=== PATIENT | male | born 1975 | race Caucasian/White ===

== ENCOUNTER 2019-10-12 06:25 | Day surgery (SDC) | payer BC, SELFPAY ==
[2019-10-12 06:50] VITALS: PULSE 67; RESP 17; TEMP 36.4; O2SAT 97; BMI 34.5
[2019-10-12] MEDS: Lactated Ringers 1,000 ML 100 ML IV (07:04)
[2019-10-12] MEDS: Bupiv/Epi 0.5% Mpf 30 ML Vial (08:02)
[2019-10-12 08:44] VITALS: BP 118/62; BP 93/65; PULSE 75; RESP 16; TEMP 36.5; O2SAT 94
[2019-10-12 08:50] VITALS: BP 109/82; BP 118/62; PULSE 71; RESP 16; O2SAT 97
[2019-10-12 09:00] VITALS: BP 112/84; BP 118/62; PULSE 73; RESP 16; O2SAT 100
[2019-10-12 09:20] VITALS: BP 117/73; BP 118/62; PULSE 70; RESP 16; TEMP 36.5; O2SAT 95
--- NOTE | 2019-10-12 09:29 | PCM.OPRPT ---
Report of Operation Date of Procedure: 10/12/19 Pre-Operative Diagnosis: Internal derangement left knee Post-Operative Diagnosis: MMT, OA Surgery/Procedure Performed:: D & O arthroscopy Type of Anesthesia:: General Anesthesiologist: Vimal Gomes - Admit VTE Documentation VTE Present on Admission: No VTE Mechan Device Prophylaxis: SCD's, Thigh High SJ Hose VTE Pharm Prophylaxis ordered?: No Reason prophylaxis not ordered:: Treatment Not Indicated
[2019-10-12 09:54] VITALS: BP 117/88; BP 118/62; PULSE 65; RESP 16; TEMP 36.1; O2SAT 97
== END 2019-10-12 10:12 | disposition home or self-care (01) ==
LOC: SDC 08:26 → AC 08:27
PROVIDERS: Anesthesiology; Referring Provider Orthopaedic Surgery; Visit Provider Orthopaedic Surgery
PROC: (CPT 29870; principal; 2019-10-12 07:45)
DX: S83.242A Other tear of medial meniscus, current injury, left knee, initial encounter (principal); S83.282A Other tear of lateral meniscus, current injury, left knee, initial encounter; M17.12 Unilateral primary osteoarthritis, left knee; M94.262 Chondromalacia, left knee; V00.131A Fall from skateboard, initial encounter; X50.1XXA Overexertion from prolonged static or awkward postures, initial encounter; Y93.51 Activity, roller skating (inline) and skateboarding; Y92.9 Unspecified place or not applicable; Y99.8 Other external cause status; F17.200 Nicotine dependence, unspecified, uncomplicated; Z11.59 Encounter for screening for other viral diseases
CPT/HCPCS: 01400; 29881; 87635; G2023; J7120; U0003

== ENCOUNTER → 2022-03-25 | Outpatient (CLI) | payer BC, SELFPAY ==
--- NOTE | 2022-03-26 10:53 | PFT_ITS ---
INTRODUCTION: The patient is a 47-year-old male that presents for pulmonary function studies secondary to a diagnosis of cough. Respiratory therapy reported good patient effort. Bronchodilators were used during testing. INTERPRETATION: Forced expiration spirometry demonstrates the presence of the presence of a mild large airways obstructive ventilatory defect. There was a significant response to aerosolized bronchodilators. Spirograms are of good quality and plateau gradually indicating slow emptying of the lungs. Body plethysmography was performed and revealed lung volumes to be within normal limits. Diffusing capacity by single breath CO was also within normal limits. IMPRESSION: Partially reversible mild large airways obstructive ventilatory defect with p reserved lung volumes and diffusing capacity.
== END | disposition home or self-care (01) ==
LOC: PSN 06:50
PROVIDERS: PCP Family Medicine; Visit Provider Internal Medicine Critical Care Medicine
DX: R05.9 Cough, unspecified (principal)
CPT/HCPCS: 94060; 94726; 94729

== ENCOUNTER 2022-04-04 | Emergency (ER) | payer BC, SELFPAY ==
[2022-04-04 00:02] VITALS: BP 131/74; PULSE 111; RESP 22; TEMP 37.1; O2SAT 93; BMI 29.5
[2022-04-04 00:38] VITALS: BP 109/69; PULSE 104; RESP 18; O2SAT 97
[2022-04-04] MEDS: MethylPREDNISolone 125 MG/2 ML Vial IV (00:51)
--- NOTE | 2022-04-04 01:00 | RAD_ITS ---
EXAM: XR CHEST, 2 VIEWS CLINICAL INDICATION: dyspnea TECHNIQUE: Frontal and lateral views of the chest. This report was created using [employer] report generation technology. COMPARISON: None. FINDINGS: LUNGS AND PLEURAL SPACES: Unremarkable. No consolidation or edema. No pneumothorax. No effusion. HEART: Unremarkable. Cardiac silhouette not enlarged. MEDIASTINUM: Central airways and mediastinal contour are unremarkable. BONES/JOINTS: Unremarkable. SOFT TISSUES: Unremarkable. RAD/Chest PA and Lateral IMPRESSION: No radiographic evidence of acute cardiopulmonary disease. Electronically Signed: Rolando Peguero MD at 1:38 EST ,
[2022-04-04 01:01] VITALS: O2SAT 93
[2022-04-04 01:15] LABS: Anion Gap 6 (5-15); BUN 15 mg/dL (7-18); BUN/Creat Ratio 13.4 RATIO (10-20); Calcium,Total 8.9 mg/dL (8.5-10.1); Chloride 108 mmol/L (98-107); Creatinine, Serum 1.12 mg/dL (0.70-1.30); EST Glomerular Filtration Rate 74 mL/min (>60); Est Glom Filt Rate - Afr Amer 90 mL/min (>60); Estimated Creatinine Clearance 99.03 ml/min; Glucose 99 mg/dL (74-106); Potassium 4.2 mmol/L (3.5-5.1); Sodium Level 142 mmol/L (136-145)
[2022-04-04 01:21] LABS: Absolute Lymphocyte Count 1.39 X10^3/uL (0.83-4.51); Absolute Neutrophil Count 10.6 X10^3/uL (2.0-7.7); Basophil# 0.06 X10^3/uL; Basophil% 0.4 % (0-1); Eosinophil# 0.66 X10^3/uL; Eosinophils% 4.8 % (0-5); Hematocrit 43.7 % (40-54); Hemoglobin 14.5 g/dL (13.0-16.5); Lymphocyte # 1.39 X10^3/ul (0.83-4.51); Lymphocyte % 10.2 % (19-41); Mean Corp Hgb Conc 33.2 g/dL (32-36); Mean Corpuscular Hgb 30.5 pg (27.0-32.0); Mean Platelet Vol. 10.1 fl (6.2-12.0); Monocyte% 5.1 % (0-10); NRBC Flagged by Analyzer 0 % (0-5); Neutrophil # 10.63 X10^3/uL (2.7-7.7); Neutrophil % 77.9 % (47-70); Platelet Count 219 K/mm3 (150-450); RBC Distribution Width CV 13.2 % (11.6-14.6); RBC Distribution Width SD 44.5 fl (35.1-43.9); Red Blood Count 4.75 M/mm3 (4.6-6.2); White Blood Count 13.7 K/mm3 (4.4-11.0)
[2022-04-04 01:52] VITALS: O2SAT 96
[2022-04-04 02:18] VITALS: PULSE 98; RESP 22; O2SAT 94
--- NOTE | 2022-04-04 02:18 | EX.ED.DYSGE1 ---
HPI History of Present Illness Chief Complaint: Shortness of Breath Narrative Narrative: Patient is a 47-year-old male with past medical history of asthma. He states that he has been worked up by pulmonology secondary to this and has plans to start Breo secondary to his symptoms. He reports that he has never had to be admitted or intubated secondary to his asthma. He denies any smoking or vaping history. He states that he has had some congestion drainage and cough and over the last 1 to 2 days has had increased shortness of breath despite taking his home albuterol nebulizer. He states that last night/this evening his symptoms seem to worsen especially with any type of ambulation and his pulse ox at home desatted into the 80s and therefore he presents for evaluation. PFSH PFSH Home Medications albuterol sulfate 90 mcg/actuation aerosol inhaler (ProAir HFA) 2 puff inhalation Q6H PRN shortness of breath or wheezing #1 device 03/22/22 [Rx Last Taken Unknown] fluticasone furoate 100 mcg-vilanterol 25 mcg/dose inhalation powder (Breo Ellipta) 1 inh inhalation Q24H #60 ea 03/22/22 [Rx Last Taken Unknown] albuterol sulfate 2.5 mg/3 mL (0.083 %) solution for nebulization 2.5 mg (3 mL) inhalation Q4H PRN Sob &/Or Wheezing #180 mL 04/02/22 [Rx Last Taken Unknown] azelastine 137 mcg (0.1 %) nasal spray aerosol 2 spray intranasal BID #30 mL 04/04/22 [Rx Last Taken Unknown] ipratropium 0.5 mg-albuterol 3 mg (2.5 mg base)/3 mL nebulization soln 3 ml inhalation 4X/DAY PRN PRN shortness of breath or wheezing #180 mL 04/04/22 [Rx Last Taken Unknown] prednisone 20 mg tablet 40 mg PO DAILY 7 days #14 tabs 04/04/22 [Rx Last Taken Unknown] promethazine 6.25 mg-codeine 10 mg/5 mL syrup 5 ml PO 4X/DAY PRN PRN cough 7 days #140 mL 04/04/22 [Rx Last Taken Unknown] Allergy/AdvReac Type Severity Reaction Status Date / Time Penicillins Allergy PT UNSURE Verified 04/04/22 00:08 OF REACTION Surgical History (Updated 12/11/22 @ 00:08 by Renea Neri) History of left knee surgery Social History (System 10/10/19 @ 14:55 by Kan Romeo) Smoking Status: Current every day smoker tobacco type: cigarettes ROS ROS ED Constitutional Constitutional ED: Denies chills or fever(s) ENT ENT ED: Reports rhinorrhea and sore throat Cardiovascular Cardiovascular: Denies chest pain Respiratory/Chest Respiratory/Chest: Reports cough and dyspnea Gastrointestinal Gastrointestinal: Denies abdominal pain, diarrhea, nausea or vomiting Genitourinary Genitourinary ED: Denies dysuria Musculoskeletal Musculoskeletal: Denies myalgias Integumentary Denies rash Neurologic Neurologic: Denies headache(s) Hematologic/Lymphatic Hematologic/Lymphatic: Denies easy bleeding or easy bruising EXAM Physical Exam Const Vital Signs: 04/04/22 00:02 04/04/22 00:38 04/04/22 01:01 Temperature 98.8 F Temperature Source Oral Pulse Rate 111 H 104 H Respiratory Rate 22 H 18 Respiratory Effort Short of Breath Respiratory Depth Normal Respiratory Pattern Tachypnea Blood Pressure 131/74 H 109/69 Blood Pressure Mean 93 82 Pulse Ox 93 97 Oxygen Delivery Method Room Air Room Air Room Air 04/04/22 02:18 Temperature Temperature Source Pulse Rate 98 Respiratory Rate 22 H Respiratory Effort Respiratory Depth Respiratory Pattern Blood Pressure Blood Pressure Mean Pulse Ox 94 Oxygen Delivery Method Positive well nourished and well developed General Appearance ED: well developed HEENT Reports moist mucous membranes HEENT Narrative: No tongue or lip swelling no oral lesions no airway edema or compromise. Nasal mucosa is hyperemic and boggy with enlarged inferior nasal turbinates. There is cobblestoning the posterior pharynx consistent with sinus drainage. Eyes PERRL and EOMs intact bilaterally Neck supple and no JVD Neck Narrative: Positive anterior cervical of adenopathy noted Chest Wall palpation of chest normal Resp Resp Narrative: Patient has mild tachypnea without nasal flaring retractions or accessory muscle use. Breath sounds are severely diminished throughout with diffuse inspiratory and expiratory wheezes Cardio regular rhythm Rate: tachycardic Extremity normal to inspection Extremity Narrative: No asymmetric edema no pitting edema negative Homans' sign bilaterally Neuro oriented x3 and CN's II-XII intact bilaterally Sensorium / Orientation: alert Psych mental status grossly normal Skin no rashes or lesions noted MDM MDM MDM Narrative Medical decision making narrative: Patient presented to the ER afebrile and satting in the mid 90s on room air. His history is concerning for asthma exacerbation from a URI. With possibility of this being COVID or influenza or even having pneumonia as a cause of his exacerbation basic blood work with viral swabs and a chest x-ray were ordered. Viral swabs are negative labs revealed mild elevation of the white count but otherwise no clinically significant findings. Chest x-ray showed no acute lung pathology. Patient reported doing forward albuterol treatments at home prior to arrival so do not feel there is need for further treatment. He was given IV Solu-Medrol and watched in the ER. His pulse ox remained in the mid 90s on room air. He was ambulated and his pulse ox was 95 to 96% with ambulation. Therefore this time as he is not hypoxic or requiring supplemental oxygen and only having mild respiratory distress with slight tachypnea we will try patient on steroids and further breathing medications at home. He agrees to return for repeat evaluation and possible admission if there is no improvement with the medication provided Lab Data Attestation: I reviewed the patient's lab results. Labs: Laboratory Results - last 24 hr 04/04/22 04/04/22 00:54 00:54 WBC 13.7 H RBC 4.75 Hgb 14.5 Hct 43.7 MCV 92.0 MCH 30.5 MCHC 33.2 RDW Std Deviation 44.5 H RDW Coeff of Casey 13.2 Plt Count 219 MPV 10.1 Immature Gran % (Auto) 1.600 H Neut % (Auto) 77.9 H Lymph % (Auto) 10.2 L [place] % (Auto) 5.1 Eos % (Auto) 4.8 Baso % (Auto) 0.4 Absolute Neuts (auto) 10.6 H Absolute Lymphs (auto) 1.39 Nucleated RBC % 0 Sodium 142 Potassium 4.2 Chloride 108 H Carbon Dioxide 28.0 Anion Gap 6 BUN 15 Creatinine 1.12 Estim Creat Clear Calc 99.03 Est GFR (MDRD) Af Amer 90 Est GFR (MDRD) Non-Af 74 BUN/Creatinine Ratio 13.4 Glucose 99 Calcium 8.9 Magnesium 2.0 Radiography Diagnostic Testing: Clinical Impression(s) from Imaging Studies Chest X-Ray 04/04/22 01:00 IMPRESSION: No radiographic evidence of acute cardiopulmonary disease. Electronically Signed: Rolando Peguero MD at 1:38 EST , Chest x-ray as interpreted by the emergency medicine physician reveals no acute infiltrate pneumothorax or pleural effusion Discharge Plan Triage Chief Complaint: Shortness of Breath ED Provider: Baljinder Glez Dx/Rx/DC Orders Clinical Impression: Asthma exacerbation, Acute upper respiratory infection Instructions: ED Asthma, Acute (Adult), ED URI, Viral W/ Wheezing (Adult) Prescriptions: New ipratropium-albuterol 0.5 mg-3 mg(2.5 mg base)/3 mL solution for nebulization 3 ml inhalation 4X/DAY PRN PRN (Reason: shortness of breath or wheezing) Qty: 180 1RF prednisone 20 mg tablet 40 mg PO DAILY 7 Days Qty: 14 0RF azelastine 137 mcg (0.1 %) aerosol,spray 2 spray intranasal BID Qty: 30 0RF Rx Instructions: administer into each nostril promethazine-codeine 6.25-10 mg/5 mL syrup 5 ml PO 4X/DAY PRN PRN (Reason: cough) 7 Days Qty: 140 0RF No Action fluticasone furoate-vilanterol [Breo Ellipta] 100-25 mcg/dose blister with device 1 inh inhalation Q24H Qty: 60 3RF Rx Instructions: after inhalation, rinse mouth with water and spit out; do not swallow albuterol sulfate [ProAir HFA] 90 mcg/actuation HFA aerosol inhaler 2 puff inhalation Q6H PRN (Reason: shortness of breath or wheezing) Qty: 1 2RF albuterol sulfate 2.5 mg /3 mL (0.083 %) solution for nebulization 2.5 mg inhalation Q4H PRN (Reason: Sob &/Or Wheezing) Qty: 180 3RF Primary Care Provider: Pelon Vazquez Referrals: Pelon Vazquez MD [Primary Care Provider] - Activity Restrictions/Additional Instructions: For the next 5 days please use 1 albuterol and 1 DuoNeb at a time 4-6 times a day for improved control of your bronchospasm/asthma. If you feel like your symptoms are worsening despite treatment or have any further concerns please return for repeat evaluation Disposition Disposition: Home, Self Care Discharge Date/Time: 04/04/22 02:33
[2022-04-04] MEDS: Ipratropium/Albuterol Sulfate 3 ML AMPUL.NEB INHALATION (02:22)
== END 2022-04-04 02:33 | disposition home or self-care (01) ==
PROVIDERS: Emergency Provider Emergency Medicine; PCP Family Medicine; Visit Provider Emergency Medicine
DX: J45.901 Unspecified asthma with (acute) exacerbation (principal); J06.9 Acute upper respiratory infection, unspecified; F17.210 Nicotine dependence, cigarettes, uncomplicated
CPT/HCPCS: 71046; 80048; 83735; 85025; 87428; 96374; 99285; A4216

== ENCOUNTER 2022-12-20 07:44 | Day surgery (SDC) | payer BC, SELFPAY ==
[2022-12-20 08:09] VITALS: BP 122/82; PULSE 50; RESP 16; TEMP 36.3; O2SAT 100; BMI 26.0
[2022-12-20] MEDS: Lactated Ringers 1,000 ML 15 ML IV (08:23)
--- NOTE | 2022-12-20 08:30 | HP.PCM_ITS ---
[facility] - General General Date of Admission: 12/20/22 Date of Service: 12/20/22 Chief Complaint: Screening colonoscopy HPI Narrative HELEN BROWN, is a 47 M who presents today for screening colonoscopy. He has past medical history of asthma and alpha-1 antitrypsin deficiency carrier. He is coming in his medicine for his asthma. He does not have abdominal pain. He denies any chest pain or shortness of breath. Does not have any weakness. He denies any change in bowel or bladder habits. He has no family history of polyps or colon cancer. [facility] Medical History Alcohol use Arthritis Asthma Smoker Home Medications albuterol sulfate 2.5 mg/3 mL (0.083 %) solution for nebulization 2.5 mg (3 mL) inhalation Q4H PRN Sob &/Or Wheezing #180 mL 04/02/22 [Rx Last Taken Unknown] ipratropium 0.5 mg-albuterol 3 mg (2.5 mg base)/3 mL nebulization soln 3 ml inhalation 4X/DAY PRN PRN shortness of breath or wheezing #180 mL 04/04/22 [Rx Last Taken Unknown] albuterol sulfate 90 mcg/actuation aerosol inhaler (ProAir HFA) 2 puff inhalation Q6H PRN shortness of breath or wheezing #1 device 05/03/22 [Rx Last Taken Unknown] fluticasone furoate 100 mcg-vilanterol 25 mcg/dose inhalation powder (Breo Ellipta) 1 inh inhalation Q24H #3 ea 11/03/22 [Rx Last Taken 12/20/22 06:30] ascorbic acid (vitamin C) 500 mg tablet,extended release (C-500) 500 mg PO DAILY 12/15/22 [History Last Taken Unknown] multivitamin 1 tab PO DAILY 12/15/22 [History Last Taken Unknown] Allergy/AdvReac Type Severity Reaction Status Date / Time Penicillins Allergy PT UNSURE Verified 12/20/22 08:02 OF REACTION Surgical History (Updated 12/15/22 @ 10:45 by Tanja Jenkins) History of left knee surgery Hx of tonsillectomy Social History (Reviewed 11/03/22 @ 14:24 by Bia Khan REGIONAL EDUCATION MANAGER, REGIONAL EDUCATION MANAGER-C) current occupational status: employed Smoking Status: Current every day smoker tobacco type: cigarettes ROS Review of Systems ROS Unobtainable: other Constitutional Constitutional: Denies fatigue, fever(s), poor appetite, weight gain or weight loss ENT HEENT: Denies mouth lesions Cardiovascular Cardiovascular: Denies abdominal bloating, abdominal edema or abdominal pain Respiratory/Chest Respiratory/Chest: Denies change in mental status, change in phlegm color, chest congestion or chest tightness Gastrointestinal Gastrointestinal: Denies belching, bloating, change in bowel habits, change in stool character, chewing difficulty, coffee ground emesis, constipation, cramping, diarrhea, dyspepsia, dysphagia, early satiety, excessive flatus, fecal incontinence, heartburn, hematemesis, hematochezia, hemorrhoids, loose stools, melena, nausea, odynophagia, rectal bleeding, tenesmus, vomiting or weight changes Genitourinary Genitourinary: Denies abdominal discomfort, burning urination or itching Musculoskeletal Musculoskeletal: Reports as per HPI; Denies muscle weakness or myalgias Integumentary Integumentary: Denies jaundice Neurologic Neurologic: Denies lack of coordination or weakness Psychiatric Psychiatric: Denies confusion, depression, memory loss, mood swings, paranoia or suicidal ideation Endocrine Endocrinology: Denies systems reviewed and no addt'l complaints, except as documented Hematologic/Lymphatic Hematologic/Lymphatic: Denies anemia, easy bleeding, easy bruising or lymphadenopathy Allergic/Immunologic Allergic/Immunologic: Denies systems reviewed and no addt'l complaints, except as documented Vital Signs Vital Signs Vital Signs: 12/20/22 08:09 12/20/22 08:09 Temperature 97.4 F L Temperature Source Temporal Pulse Rate 50 L Respiratory Rate 16 Respiratory Pattern Normal Blood Pressure 122/82 H Blood Pressure Mean 95 Blood Pressure Source Monitor Blood Pressure Position Semi-Fowlers Blood Pressure Location Left Arm Pulse Ox 100 Oxygen Delivery Method Room Air Weight Weight: 213 lb 13.574 oz Body Mass Index (BMI) 26.0 Physical Exam Const alert General Appearance: cooperative Orientation / Consciousness: oriented to person HEENT hearing grossly normal bilaterally Head and Scalp: normal to inspection Face and Sinus: face symmetric Nose: external nose normal Mouth: oral and palatal mucosa normal Eyes conjunctivae normal General Eye: normal appearance of both eyes Neck full ROM General: normal visual inspection Lymph Lymphatic: no lymphadenopathy noted Chest inspection of chest normal and palpation of chest normal Chest: symmetrical chest wall rise Resp normal respiratory effort Effort and Inspection: able to speak in complete sentences Cardio regular rate GI non-distended Percussion: normal to percussion Rectal Exam: deferred Neuro Speech: speech normal Gait (Neuro): normal gait Assessment & Plan Assessment/Plan (1) Encounter for screening for malignant neoplasm of colon: PLAN: He will undergo screening colonoscopy. He was explained alternatives, risk, benefits including outstanding bleeding, infection, sepsis, perforation, need for emergent surgery . He will have an ASA of 2.
--- NOTE | 2022-12-20 09:00 | COLBX_PTH ---
PATIENT: HELEN BROWN LOC: EN U#:[id number] AGE/SX: 47/M ROOM: RE12/20/[address]: Dr. Arthur Perkins DO : 1975 BED: DIS: 12/20/2022 SPEC #: [id number] RECD: 12/20/22 13:53 STATUS: SHADI INDY #: [id number] LUIS DANIEL: 12/20/22 09:[address]: Arthur Perkins DEPT: SURGICAL PATHOLOGY RECD BY: Shala Durand ENTERED: 12/21/22 07:43 SP TYPE: COLON BX OTHR DR: Dr. Pelon Vazquez MD Tissues: A - COLON BIOPSY B - Transverse colon Procedures: Surgery Specimen Level IV HEADER OPERATION: Colonoscopy with biopsy - open access (MAC) PRE-OP DIAGNOSIS: Screening TISSUE SUBMITTED: A - Hepatic flexure biopsy, B - Transverse colon biopsy MICROSCOPIC DIAGNOSIS A. Hepatic flexure, biopsy: Tubular adenoma. B. Transverse colon, biopsy: Fragments of colonic mucosa, no pathologic diagnosis. RUBY:erick 12/22/2022 MICROSCOPIC DESCRIPTION Slides are reviewed. GROSS DESCRIPTION A - Received in fixative is one container labeled with the patient's name and designated hepatic flexure biopsy. The specimen consists of one irregular fragment of light gore soft tissue that measures 0.3 x 0.3 x 0.1 cm. The specimen is totally submitted in one cassette. B - Received in fixative is one container labeled with the patient's name and designated transverse colon biopsy. The specimen consists of two irregular fragments of light gore soft tissue that in aggregate measure 0.8 x 0.3 x 0.1 cm. The specimen is totally submitted in one cassette. / RUBY:erick 12/21/2022 TC:1 [facility]: [id number] x2
[2022-12-20 09:25] VITALS: BP 122/82; BP 90/67; PULSE 57; RESP 16; TEMP 36.1; O2SAT 99
--- NOTE | 2022-12-20 09:25 | OP.COLON_ITS ---
Patient Name: Darin Olivas Procedure Date: 12/20/2022 8:50 AM Date of : 1975 Age: 47 Procedure: Colonoscopy Indications: Screening for colorectal malignant neoplasm Providers: Arthur Perkins DO Referring MD: Pelon Vazquez Medicines: Monitored Anesthesia Care Patient Profile: This is a 47 year old male. Refer to note in patient chart for documentation of history and physical. Last Colonoscopy: none. The patient's first colonoscopy is today. Complications: No immediate complications. Procedure: Pre-Anesthesia Assessment: - Prior to the procedure, a History and Physical was performed, and patient medications and allergies were reviewed. The patient is competent. The risks and benefits of the procedure and the sedation options and risks were discussed with the patient. All questions were answered and informed consent was obtained. Patient identification and proposed procedure were verified by the physician in the pre-procedure area. Mental Status Examination: alert and oriented. Airway Examination: normal oropharyngeal airway and neck mobility. Respiratory Examination: clear to auscultation. CV Examination: normal. Prophylactic Antibiotics: The patient does not require prophylactic antibiotics. Prior Anticoagulants: The patient has taken no anticoagulant or antiplatelet agents. ASA Grade Assessment: II - A patient with mild systemic disease. After reviewing the risks and benefits, the patient was deemed in satisfactory condition to undergo the procedure. The anesthesia plan was to use monitored anesthesia care (MAC). Immediately prior to administration of medications, the patient was re-assessed for adequacy to receive sedatives. The heart rate, respiratory rate, oxygen saturations, blood pressure, adequacy of pulmonary ventilation, and response to care were monitored throughout the procedure. The physical status of the patient was re-assessed after the procedure. After I obtained informed consent, the scope was passed under direct vision. Throughout the procedure, the patient's blood pressure, pulse, and oxygen saturations were monitored continuously. The Colonoscope was introduced through the anus and advanced to the cecum, identified by appendiceal orifice and ileocecal valve. The colonoscopy was performed without difficulty. The patient tolerated the procedure well. The quality of the bowel preparation was adequate. The ileocecal valve, appendiceal orifice, and rectum were photographed. Scope In: 9:03:55 AM Scope Withdrawal Time 0 hours 10 minutes 37 seconds Scope Out: 9:18:19 AM Total Procedure Duration Time 0 hours 14 minutes 24 seconds Findings: The perianal and digital rectal examinations were normal. Multiple small and large-mouthed diverticula were found in the recto-sigmoid colon, sigmoid colon, descending colon, hepatic flexure and ascending colon. Two sessile polyps were found in the transverse colon and hepatic flexure. The polyps were 1 to 2 mm in size. These polyps were removed with a cold snare. Resection and retrieval were complete. Verification of patient identification for the specimen was done. Estimated blood loss was minimal. The exam was otherwise without abnormality on direct and retroflexion views. Impression: - Diverticulosis in the recto-sigmoid colon, in the sigmoid colon, in the descending colon, at the hepatic flexure and in the ascending colon. - Two 1 to 2 mm polyps in the transverse colon and at the hepatic flexure, removed with a cold snare. Resected and retrieved. - The examination was otherwise normal on direct and retroflexion views. Recommendation: - Discharge patient to home. - Resume previous diet. - Continue present medications. - Await pathology results. - Repeat colonoscopy in 5 years for surveillance. Procedure Code(s): --- Professional --- 13523, Colonoscopy, flexible; with removal of tumor(s), polyp(s), or other lesion(s) by snare technique CPT copyright 2021 [employer]. All rights reserved. The codes documented in this report are preliminary and upon biodiesel plant superintendent review may be revised to meet current compliance requirements. Arthur Perkins DO 12/20/2022 9:25:02 AM This report has been signed electronically. Number of Addenda: 0 Note Initiated On: 12/20/2022 8:50 AM
--- NOTE | 2022-12-20 09:26 | OP.CCLET_ITS ---
12/20/2022 Pelon Vazquez [address] [place] [address] Re : Colonoscopy procedure for Darin Olivas Dear Dr. Vazquez This procedure was performed on Tuesday, December 20, 2022. My impressions and recommendations are as follows: Impressions : - Diverticulosis in the recto-sigmoid colon, in the sigmoid colon, in the descending colon, at the hepatic flexure and in the ascending colon. - Two 1 to 2 mm polyps in the transverse colon and at the hepatic flexure, removed with a cold snare. Resected and retrieved. - The examination was otherwise normal on direct and retroflexion views. Recommendations : - Discharge patient to home. - Resume previous diet. - Continue present medications. - Await pathology results. - Repeat colonoscopy in 5 years for surveillance. My findings are described in the full procedure note, which is enclosed. If I can be of further assistance, please feel free to contact me at . Sincerely, Arthur Perkins, 12/20/2022 9:25:02 AM This report has been signed electronically.
[2022-12-20 09:30] VITALS: BP 122/82; BP 92/60; PULSE 51; RESP 16; O2SAT 99
[2022-12-20 09:35] VITALS: BP 100/71; BP 122/82; PULSE 48; RESP 16; O2SAT 100
[2022-12-20 09:40] VITALS: BP 122/82; BP 95/64; PULSE 59; RESP 16; TEMP 36.1; O2SAT 97
[2022-12-20 09:48] VITALS: BP 122/82
== END 2022-12-20 09:56 | disposition home or self-care (01) ==
LOC: EN 07:45 → AC 07:46
PROVIDERS: PCP Family Medicine; Referring Provider Family Medicine; Visit Provider Internal Medicine Gastroenterology
PROC: 0DJD8ZZ Inspection of Lower Intestinal Tract, Via Natural or Artificial Opening Endoscopic (ICD-10-PCS; CPT 45378; principal; 2022-12-20 08:55)
DX: Z12.11 Encounter for screening for malignant neoplasm of colon (principal); K57.30 Diverticulosis of large intestine without perforation or abscess without bleeding; F17.210 Nicotine dependence, cigarettes, uncomplicated; J45.909 Unspecified asthma, uncomplicated; D12.3 Benign neoplasm of transverse colon
CPT/HCPCS: 45385; 88305; J7120; J2405

== ENCOUNTER → 2023-06-29 | Outpatient (CLI) | payer BC, SELFPAY ==
[2023-06-29 11:34] LABS: AST(SGOT) 22 U/L (15-37); Alanine Aminotransfer ALT/SGPT 15 U/L (16-61); Albumin, Serum 3.9 g/dL (3.2-5.0); Alkaline Phosphatase 52 U/L (45-117); Anion Gap 5 (5-15); BUN 17 mg/dL (7-18); BUN/Creat Ratio 18.6 RATIO (10-20); Bilirubin, Direct 0.16 mg/dL (0.00-0.30); Chloride 110 mmol/L (98-107); Cholesterol 136 mg/dL (200); Creatinine, Serum 0.91 mg/dL (0.70-1.30); EST Glomerular Filtration Rate 94 mL/min (>60); Est Glom Filt Rate - Afr Amer 113 mL/min (>60); Globulin 2.9 g/dL (2.2-4.2); Glucose 97 mg/dL (74-106); High Density Lipoprotein 53 mg/dL; Magnesium 2.2 mg/dL (1.6-2.6); Potassium 4.3 mmol/L (3.5-5.1); Protein, Total 6.8 g/dL (6.4-8.2); Sodium Level 142 mmol/L (136-145); Thyroid Stim Hormone (TSH) 1.22 uIU/mL (0.358-3.74); Triglycerides 40 mg/dL; Very Low Density Lipoprotein 8 mg/dL (5-40)
== END | disposition home or self-care (01) ==
LOC: LAB 10:04
PROVIDERS: PCP Family Medicine; Referring Provider Internal Medicine Cardiovascular Disease; Visit Provider Internal Medicine Cardiovascular Disease
DX: R00.0 Tachycardia, unspecified (principal)
CPT/HCPCS: 36415; 80048; 80061; 80076; 83735; 84443

== ENCOUNTER → 2023-07-14 | Outpatient (CLI) | payer BC, SELFPAY ==
--- NOTE | 2023-07-14 15:20 | CT_ITS ---
STUDY: CT CHEST WITHOUT CONTRAST REASON FOR EXAM: Male, 48 years old. TACHY. Cardiac over read examination. RADIATION DOSAGE (If Supplied By Facility): CTDIvol = ( 12.19 ) mGy, DLP = ( 268.17 ) mGycm TECHNIQUE: Transaxial imaging was performed without the administration of intravenous contrast material. Individualized dose optimization techniques were used for this CT. COMPARISON: No relevant priors. FINDINGS: CHEST The lungs are normal. There is no demonstrated pleural abnormality. There are mild calcifications of the coronary arteries. Normal mediastinum. Normal hilar regions. Normal unenhanced pulmonary arteries. Mild atherosclerotic plaque formation of the aortic arch. Normal osseous structures. There is no demonstrated abnormality of the visualized upper abdomen. CT/Limited Chest CT Cardiac Only IMPRESSION: Mild calcification of the aortic arch as well as coronary artery calcification. Electronically Signed: Nazario Baez MD at 15:51 EDT ,
--- NOTE | 2023-07-15 07:52 | CA.SCORE ---
Calcium Scoring Date of Study:: 07/14/23 Indications Indications: Tachycardia Coronary Calcium Scoring: High-resolution Computed Tomographic imaging of the chest was performed on [07/14/2023], with particular attention paid to the coronary arteries. Images from the examination were analyzed for the presence and extent of coronary artery calcification , using coronary calcium quantification software. The patient tolerated the procedure well and there were no complications. The results of the coronary calcification analysis are provided below. Findings Coronary Artery Left Main (LM): 0 Left Anterior Descending (LAD): 26 Left Circumflex (LCX): 0 Right Coronary Artery (RCA): 1 Total Agatston Score: 27 Percentile Rankin-75th percentile Calcium Scoring Interpretation: Different methods to categorize the overall amount of coronary plaque. Overall amount CAC SIS Visual of coronary plaque P1 Mild -100 <2 1-2 vessels with mild amount of plaque P2 Moderate 101-300 3-4 1-2 vessels with moderate amount, 3 vessels with mild amount of plaque P3 Severe 301-999 5-7 3 vessels with moderate amount, 1 vessel with severe amount of plaque P4 Extensive >1000 >8 2-3 vessels with severe amount of plaque Conclusion: Minimal amount of atherosclerotic plaque noted.
== END | disposition home or self-care (01) ==
LOC: CT 14:41
PROVIDERS: PCP Family Medicine; Referring Provider Internal Medicine Cardiovascular Disease; Visit Provider Internal Medicine Cardiovascular Disease
DX: R00.0 Tachycardia, unspecified (principal); R00.2 Palpitations
CPT/HCPCS: 75571; 76380

== ENCOUNTER → 2023-07-20 | Outpatient (CLI) | payer BC, SELFPAY ==
--- NOTE | 2023-07-20 14:45 | ECHOD_ITS ---
Version 2 Reason For Study: TACHYCARDIA Procedure This was a 2D Doppler, Color Flow transthoracic echocardiogram. Exam performed in department. Left Ventricle Normal LV size. Left ventricular systolic function is normal. The estimated ejection fraction is 60 %. No regional wall motion abnormalities noted. Right Ventricle Normal RV size. Normal systolic function. Atria Normal left atrium. Normal right atrium. Mitral Valve Normal mitral valve. Tricuspid Valve Normal tricuspid valve. Mild tricuspid valve insufficiency. Pulmonary artery systolic pressure is 26 mmHg. Aortic Valve Trisinus/trileaflet aortic valve. Pulmonic Valve Normal pulmonic valve. Great Vessels Normal aortic root. The pulmonary artery is normal size. Normal inferior vena cava. Pericardium/Pleural No pericardial effusion. MMode/2D Measurements & Calculations LVIDd: 5.4 cm IVSd: 1.1 cm Ao root diam: 2.9 cm LVIDs: 3.1 cm LVPWd: 0.97 cm RVDd: 3.5 cm FS: 43.7 % LAV(MOD-bp): 46.0 ml LVAd ap4: 28.6 cm2 LVAd ap2: 29.3 cm2 LAV(MOD-bp) Indexed: 20.1 ml/m2 LVLd ap4: 8.0 cm LVLd ap2: 7.5 cm LAV(MOD-sp2): 44.6 ml EDV(MOD-sp4): 84.1 ml EDV(MOD-sp2): 92.3 ml LAV(MOD-sp4): 44.5 ml EDV(sp4-el): 86.9 ml EDV(sp2-el): 96.7 ml LVAs ap4: 16.1 cm2 LVAs ap2: 15.7 cm2 LVLs ap4: 6.7 cm LVLs ap2: 6.3 cm ESV(MOD-sp4): 33.5 ml ESV(MOD-sp2): 31.6 ml ESV(sp4-el): 32.6 ml ESV(sp2-el): 32.9 ml EF(MOD-sp4): 60.2 % EF(MOD-sp2): 65.7 % EF(sp4-el): 62.5 % SV(MOD-sp4): 50.6 ml SV(MOD-sp2): 60.7 ml SV(sp4-el): 54.3 ml LA dimension(2D): 3.6 cm LA A4 area: 16.2 cm2 RA A4 area: 15.1 cm2 TAPSE: 2.0 cm Time Measurements MV dec time: 0.26 sec Doppler Measurements & Calculations MV E max dax: 65.5 cm/sec Lat Peak E' Dax: 17.7 cm/sec Med Peak E' Dax: 13.5 cm/sec MV A max dax: 41.9 cm/sec E/E' lat: 3.7 E/E' med: 4.9 MV E/A: 1.6 Ao V2 max: 119.3 cm/sec LV V1 max: 112.7 cm/sec PA V2 max: 94.3 cm/sec Ao max P.7 mmHg LV V1 max P.1 mmHg TR max dax: 244.0 cm/sec TR max P.8 mmHg ECHO/Echo Complete Interpretation Summary Normal LV size. Left ventricular systolic function is normal. The estimated ejection fraction is 60 %. Structurally normal valves. Ordering Physician: Chandu Zaragoza Referring Physician: MD George Pelon Performed By: Marisol Murray RDCS
== END | disposition home or self-care (01) ==
LOC: CVS 14:42
PROVIDERS: PCP Family Medicine; Referring Provider Internal Medicine Cardiovascular Disease; Visit Provider Internal Medicine Cardiovascular Disease
DX: I07.1 Rheumatic tricuspid insufficiency (principal); R00.0 Tachycardia, unspecified
CPT/HCPCS: 93306

== ENCOUNTER 2024-02-23 15:42 | Outpatient (CLI) | payer BC, SELFPAY ==
--- NOTE | 2024-02-23 15:45 | CT_ITS ---
STUDY: LOW DOSE CT LUNG CANCER SCREENING REASON FOR EXAM: Male, 49 years old. Patient smokes 5-10 cigarettes per day for 15 years. RADIATION DOSAGE (If Supplied By Facility): CTDIvol = ( 4.02 ) mGy, DLP = ( 141.45 ) mGycm TECHNIQUE: No contrast was administered. Low dose technique was utilized (average mAS-38 and kVp 120). 1.25 mm axial source images with a slice interval of 1.25-mm were reconstructed in lung windows. 2.5 mm axial source images with a slice interval of 2.5-mm were reconstructed in lung windows. 5.0 mm axial source images with a slice interval of 5.0-mm were reconstructed in soft tissue windows. COMPARISON: None. NODULES: No suspicious nodules are seen. Emphysema: Mild degree of emphysematous changes with scarring at the lung apices more prominent at the right lung apex. Endobronchial lesion: None Aorta: Minimal atherosclerotic plaque formation of the aortic arch. CORONARY ARTERIES: Coronary artery calcification is seen. Heart: Remarkable Pulmonary artery: Mediastinal nodes: Unremarkable Other chest and abdominal findings: CT/Low Dose CT Lung Screening IMPRESSION: Lung-RADS category 2 - Continue annual screening with LDCT in 12 months. IMPORTANT NOTES FOR USE: ACR Lung-RADS Version 1.1 Assessment Categories Release Date: 2018 Category: Coded 0-4 bases on nodule(s) with highest degree of suspicion. Negative screen is defined as categories 1 and 2; a positive screen is defined as categories 3 and 4. Category 3 and 4A nodules that are unchanged on interval CT should be coded as category 2, and individuals returned to screening in 12 months. Category 4X: Category 3 or 4 nodules with additional imaging findings that increase the suspicion of lung cancer, such as spiculation, GGN that doubles in size in 1 year, enlarged lymph notes, etc. Category Modifiers: S (significant finding unrelated to lung cancer) Electronically Signed: Nazario Baez MD at 14:51 EDT ,
== END 2024-02-23 23:59 | disposition home or self-care (01) ==
LOC: CT 15:43
PROVIDERS: PCP Family Medicine; Referring Provider Nurse Practitioner Acute Care; Visit Provider Nurse Practitioner Acute Care
DX: Z12.2 Encounter for screening for malignant neoplasm of respiratory organs (principal); F17.210 Nicotine dependence, cigarettes, uncomplicated
CPT/HCPCS: 71271

== ENCOUNTER → 2024-08-08 | Outpatient (CLI) | payer BC, SELFPAY | END | disposition home or self-care (01) | LOC: PSN 06:57 | PROVIDERS: PCP Family Medicine; Referring Provider Nurse Practitioner Family; Visit Provider Nurse Practitioner Family | DX: J44.9 Chronic obstructive pulmonary disease, unspecified (principal) | CPT/HCPCS: 94060; 94726; 94729 ==

== ENCOUNTER → 2025-03-18 | Outpatient (CLI) | payer BC, SELFPAY ==
--- NOTE | 2025-03-18 17:19 | CT_ITS ---
PROCEDURE: LOW DOSE CT LUNG SCREENING 03/18/2025 REASON FOR EXAM: SMOKING HISTORY GREATER THAN 20 PACK YEAR TECHNIQUE: Procedure Code: [id number] Modality: CT Procedure: LOW DOSE CT LUNG SCREENING Coronal and Sagittal reconstruction series were provided. One or more dose reduction techniques were used (e.g., Automated exposure control, adjustment of the mA and/or kV according to patient size, use of iterative reconstruction technique). REFERENCE LINK: [facility] Lung-RADS RADIATION DOSE SUMMARY: DLP: 137.43 mGycm COMPARISON: CT low-dose lung screening 02/23/2024 FINDINGS: PULMONARY NODULES: (Only nodules >3mm are reported) Nodules described below are on series 3 unless otherwise specified. Pulmonary Nodules: New 6-7 mm right lower lobe pulmonary nodule (image 220). Hardware:None. Lymph Nodes:No lymphadenopathy. Heart and Vasculature:The heart is normal in size.The thoracic aorta main pulmonary artery are normal in caliber. Coronary Artery Calcifications: Present Lungs and Airways: No focal lung consolidation. The central airways are patent. Pleura:No pneumothorax or pleural effusion. Upper Abdomen:Unremarkable. Bones:No aggressive osseous lesions. Degenerative changes of the thoracic spine. CT/Low Dose CT Lung Screening IMPRESSION: New 6-7 mm right lower lobe pulmonary nodule. Coronary artery calcification (CAC) is present Lung-RADS Category: 3 PROBABLY BENIGN (BASED ON IMAGING FEATURES OR BEHAVIOR). RECOMMEND 6 MONTH LDCT. Reading Location: [id number]
== END | disposition home or self-care (01) ==
LOC: CT 17:19
PROVIDERS: PCP Family Medicine; Referring Provider Nurse Practitioner Family; Visit Provider Nurse Practitioner Family
DX: F17.210 Nicotine dependence, cigarettes, uncomplicated (principal)
CPT/HCPCS: 71271